=== PATIENT | male | born 1985 | race African-American/Black ===

== ENCOUNTER 2025-10-21 20:54 | Emergency (ER) | payer MEDICAID ==
[~2025-10-21] VITALS: Ht 188 cm; Wt 86.0 kg
[2025-10-21 21:29] VITALS: O2SAT 98
[2025-10-21] MEDS ORDERED: OLOP2.5D15 EACHEYE (22:12)
[2025-10-21] MEDS: TETANUS, DIPHTHERIA, PERTUSSIS VAC/PF 0.5ML (>10YR OLD) IM ONE (22:36)
[2025-10-21 22:40] VITALS: BP 117/65; PULSE 60; RESP 18; TEMP 36.6; O2SAT 100
== END 2025-10-21 22:46 | disposition home or self-care (01) ==
LOC: ER 20:54
DX: H10.10 Acute atopic conjunctivitis, unspecified eye (principal)
CPT/HCPCS: 90471; 90715; 99283